=== PATIENT | female | born 1980 | race Two or more races ===

== ENCOUNTER → 2016-11-16 | Outpatient (CLI) | payer OTHER ==
[~2016-11-16] MED LIST: MACROBID100 MG PO; [UNRECOGNIZED DRUG - OTHER]; [UNRECOGNIZED DRUG - OTHER]; [UNRECOGNIZED DRUG - OTHER]
--- NOTE | ~2016-11-16 | US128 ---
[id number] [facility] [address]. [place], [place] [address] [id number] O MR#: [id number] Acc #: [id number] NAME: DILSHAD BARRAZA : 1980 SEX: F STUDY DATE/TIME: 11/16/2016 9:48 UNIT: [facility] ROOM: STUDY DESCRIPTION: US Thyroid Attending Physician: Shasha Segovia Ordering Physician: Shasha Segovia Primary Care Physician: Raeann Betancur M.D. MEDICAL IMAGING REPORT This report is preliminary unless electronic signature is present EXAM Thyroid ultrasound 11/16/2016 INDICATIONS Abnormal TSH levels, hypothyroid for a week. Hoarseness yesterday. Thyroid symptoms began about 2 years ago. No personal or family history of thyroid malignancy. TECHNIQUE Sonographic imaging of the thyroid gland was performed. COMPARISON We have no comparison studies. FINDINGS The right thyroid lobe measures 1.3 x 1.1 x 4.6 cm and the left measures 1.5 x 4.3 x 1 cm. Thyroid isthmus measures 2 mm. Vascularity is mildly prominent but symmetric bilaterally. Correlate with any laboratory data to suggest mild thyroiditis. There is a small nodule in the medial [id number] pole left thyroid lobe. It is solid and measures about 6 x 5 mm. No microcalcifications. It is a mixed hypo and hyperechoic nodule. Based on size dimensions, it does not meet size criteria for fine-needle aspiration at this time. Suggest interval followup ultrasound in 1 year for reassessment of stability. IMPRESSION 1. There is a small mixed echogenicity solid nodule in the [id number] pole left thyroid lobe measuring a minimum diameter of 4-5 mm. Suggest interval followup ultrasound in 1 year for reassessment of stability. 2. No evidence of thyromegaly. Mildly increased vascularity which may reflect a mild thyroiditis in the appropriate clinical context. Dictated by... Hola Reynolds M.D. THIS IS AN ELECTRONICALLY VERIFIED REPORT Hola Reynolds M.D. at 11/17/2016 7:38 AM CHIKA/ana TD: 11/16/2016 20:40 JOB #: [id number] MEDICAL IMAGING REPORT Page 1 of 1 COPY
== END | disposition home or self-care (01) ==
LOC: CWCC 09:35
DX: R94.6 Abnormal results of thyroid function studies (principal); E04.1 Nontoxic single thyroid nodule
CPT/HCPCS: 76536